=== PATIENT | female | born 1935 | race Caucasian/White ===

== ENCOUNTER 2016-08-20 12:12 | Emergency (ER) | payer MEDICARE ==
[2014-09-10 06:04] VITALS: BMI 22.0
[~2016-08-20 12:12] MED LIST: ALDACTONE25 MG PO; ALTACE2.5 MG PO; BAYER CHEWABLE81 MG PO; COREG 3.1253.125 MG PO; DUONEB 2.5-0.5 M3 ML UPD; IBUPROFEN400 MG PO; K-TAB10 MEQ PO; KEFLEX500 MG PO; LASIX40 MG PO; LASIX80 MG PO; LEVOTHROID50 MCG PO; LISINOPRIL2.5 MG PO; MIRALAX17 GM PO; MUCINEX600 MG PO; NAPROSYN500 MG PO; NITRO-BID60 GM TP; NITRO-DUR0.4 MG TRANSDERM; NORCO 10/325 TA1 TA1 PO; OMNICEF300 MG PO; PRAVACHOL20 MG PO; PRISTIQ50 MG PO; PROAIR HFA8.5 GM INH; PROTONIX40 MG PO; VALIUM5 MG PO
[2016-08-20 13:02] LABS: BASOPHILS 0.1 % (0-2); EOSINOPHILS 2.7 % (0-7); HEMATOCRIT 52.1 % (36.0-48.0); IMMATURE GRANULOCYTES 0.1 % (0-5); LYMPHOCYTES 15.1 % (15-50); MCHC 32.6 g/dL (31.0-37.0); MCV 101.2 fL (80.0-100.0); MEAN PLATELET VOLUME 10.9 fL (7.4-10.4); MONOCYTES 10.4 % (2-11); NEUTROPHILS 71.6 % (40-80); RBC 5.15 10x6/uL (4.00-5.40); WBC 7.4 10x3/uL (4.8-10.8)
[2016-08-20 13:03] LABS: PLATELET COUNT 171 10x3/uL (130-400)
[2016-08-20 13:29] LABS: ALBUMIN 3.9 g/dL (3.4-5.0); ANION GAP 10.4 mmol/L (8-16); BILIRUBIN - TOTAL 1.01 mg/dL (0.2-1.3); CALCIUM 9.3 mg/dL (8.5-10.1); CARBON DIOXIDE 30.7 mmol/L (21.0-32.0); POTASSIUM - SERUM 4.1 mmol/L (3.5-5.1); PROTEIN - SERUM 7.3 g/dL (6.4-8.2)
== END 2016-08-20 16:33 | disposition home or self-care (01) ==
LOC: D.ER 12:12
PROVIDERS: Emergency Medicine
DX: I50.9 Heart failure, unspecified (principal); M54.9 Dorsalgia, unspecified; J44.9 Chronic obstructive pulmonary disease, unspecified; F32.9 Major depressive disorder, single episode, unspecified; Z95.0 Presence of cardiac pacemaker

== ENCOUNTER 2016-09-19 21:41 | Emergency (ER) | payer MEDICARE ==
[2014-09-10 06:04] VITALS: BMI 22.0
[2016-09-19 22:55] LABS: BASOPHILS 0.6 % (0-2); EOSINOPHILS 3.8 % (0-7); HEMATOCRIT 47.7 % (36.0-48.0); HEMOGLOBIN 15.4 g/dL (12-16); IMMATURE GRANULOCYTES 0.2 % (0-5); LYMPHOCYTES 23.5 % (15-50); MCHC 32.3 g/dL (31.0-37.0); MCV 102.4 fL (80.0-100.0); MEAN PLATELET VOLUME 11.5 fL (7.4-10.4); MONOCYTES 16.7 % (2-11); NEUTROPHILS 55.2 % (40-80); PLATELET COUNT 186 10x3/uL (130-400); RBC 4.66 10x6/uL (4.00-5.40)
[2016-09-19 23:32] LABS: ALBUMIN 3.6 g/dL (3.4-5.0); ALKALINE PHOSPHATASE 150 U/L (46-116); BILIRUBIN - TOTAL 0.85 mg/dL (0.2-1.3); CALC OSMOLALITY 283 mosm/kg (275-300); CALCIUM 8.9 mg/dL (8.5-10.1); CARBON DIOXIDE 27.1 mmol/L (21.0-32.0); CHLORIDE - SERUM 102 mmol/L (98-107); CREATINE KINASE 466 UL (21-215); CREATININE - SERUM 1.3 mg/dL (0.6-1.3); GLUCOSE 106 mg/dL (74-106); MAGNESIUM - SERUM 1.6 mg/dL (1.8-2.4); POTASSIUM - SERUM 3.9 mmol/L (3.5-5.1); PRO BNP 4139 pg/mL (0-450); PROTEIN - SERUM 6.8 g/dL (6.4-8.2); SODIUM 139 mmol/L (136-145); TROPONIN-I 0.054 ng/mL (0.000-0.060); UREA NITROGEN 30 mg/dL (7-18); eGFR NON AFRICAN AMERICAN 41 mL/min (90-120)
[2016-09-19 23:35] LABS: CKMB 2.9 U/L (0.0-3.6)
[2016-09-19 23:43] LABS: ALT (SGPT) 24 U/L (10-68)
== END 2016-09-19 23:00 | disposition home or self-care (01) ==
LOC: D.ER 21:41
PROVIDERS: Emergency Medicine
DX: R07.9 Chest pain, unspecified (principal); J44.9 Chronic obstructive pulmonary disease, unspecified; I50.9 Heart failure, unspecified

== ENCOUNTER 2016-11-25 10:09 | Emergency (ER) | payer MEDICARE ==
[2014-09-10 06:04] VITALS: BMI 22.0
[2016-11-25 12:12] LABS: BASOPHILS 0.2 % (0-2); EOSINOPHILS 1.1 % (0-7); HEMATOCRIT 47.7 % (36.0-48.0); HEMOGLOBIN 15.9 g/dL (12-16); IMMATURE GRANULOCYTES 0.3 % (0-5); LYMPHOCYTES 11.7 % (15-50); MCH 33.4 pg (26.0-34.0); MCHC 33.3 g/dL (31.0-37.0); MCV 100.2 fL (80.0-100.0); MEAN PLATELET VOLUME 10.9 fL (7.4-10.4); NEUTROPHILS 73.7 % (40-80); PLATELET COUNT 190 10x3/uL (130-400); RBC 4.76 10x6/uL (4.00-5.40); RDW 14.2 % (11.5-14.5); WBC 10.1 10x3/uL (4.8-10.8)
[2016-11-25 12:19] LABS: APPEARANCE HAZY (CLEAR); BILIRUBIN NEGATIVE (NEGATIVE); COLOR YELLOW (YELLOW); GLUCOSE NEGATIVE (NEGATIVE); KETONE NEGATIVE (NEGATIVE); LEUKOCYTE ESTERASE 1+ (NEGATIVE); NITRITE POSITIVE (NEGATIVE); PROTEIN 1+ mg/dL (NEGATIVE); SPECIFIC GRAVITY 1.015 (1.005-1.020); UROBILINOGEN NORMAL (NORMAL)
[2016-11-25 12:20] LABS: BACTERIA MANY /hpf (NONE SEEN); EPITHELIAL CELLS 0-5 /hpf (0-5); RED CELLS - URINE 0-5 /hpf (0-5)
== END 2016-11-25 14:02 | disposition home or self-care (01) ==
LOC: D.ER 10:09
PROVIDERS: Nurse Practitioner Family
DX: N39.0 Urinary tract infection, site not specified (principal); M54.5 Low back pain; J44.9 Chronic obstructive pulmonary disease, unspecified; I50.9 Heart failure, unspecified; Z95.0 Presence of cardiac pacemaker

== ENCOUNTER 2016-12-02 01:33 | Emergency (ER) | payer MEDICARE ==
[2014-09-10 06:04] VITALS: BMI 22.0
[2016-12-02 02:55] LABS: APPEARANCE CLEAR (CLEAR); COLOR YELLOW (YELLOW)
[2016-12-02 02:56] LABS: BILIRUBIN NEGATIVE (NEGATIVE); GLUCOSE NEGATIVE (NEGATIVE); KETONE NEGATIVE (NEGATIVE); LEUKOCYTE ESTERASE NEGATIVE (NEGATIVE); NITRITE NEGATIVE (NEGATIVE); PROTEIN NEGATIVE (NEGATIVE); SPECIFIC GRAVITY 1.015 (1.005-1.020); UROBILINOGEN NORMAL (NORMAL)
== END 2016-12-02 03:45 | disposition home or self-care (01) ==
LOC: D.ER 01:33
PROVIDERS: Emergency Medicine
DX: M54.5 Low back pain (principal); M51.36 Other intervertebral disc degeneration, lumbar region; J44.9 Chronic obstructive pulmonary disease, unspecified; Z95.0 Presence of cardiac pacemaker

== ENCOUNTER 2016-12-03 12:29 | Emergency (ER) | payer MEDICARE ==
[2014-09-10 06:04] VITALS: BMI 22.0
== END 2016-12-03 17:42 | disposition home or self-care (01) ==
LOC: D.ER 12:29
DX: R07.81 Pleurodynia (principal); M54.5 Low back pain; J44.9 Chronic obstructive pulmonary disease, unspecified; Z95.0 Presence of cardiac pacemaker

== ENCOUNTER 2016-12-05 13:51 | Observation (INO) | payer MEDICARE ==
[~2016-12-05] VITALS: Ht 157.5 cm; Wt 54.4 kg
[2016-12-05 15:40] LABS: BASOPHILS 0.3 % (0-2); EOSINOPHILS 1.3 % (0-7); HEMATOCRIT 44.3 % (36.0-48.0); HEMOGLOBIN 14.7 g/dL (12-16); IMMATURE GRANULOCYTES 0.1 % (0-5); LYMPHOCYTES 15.2 % (15-50); MCH 33.6 pg (26.0-34.0); MCHC 33.2 g/dL (31.0-37.0); MCV 101.4 fL (80.0-100.0); MEAN PLATELET VOLUME 10.8 fL (7.4-10.4); MONOCYTES 9.6 % (2-11); NEUTROPHILS 73.5 % (40-80); PLATELET COUNT 192 10x3/uL (130-400); RBC 4.37 10x6/uL (4.00-5.40); RDW 14.1 % (11.5-14.5); WBC 6.9 10x3/uL (4.8-10.8)
[2016-12-05 15:59] LABS: INR 1.14 (0.85-1.17); PROTIME 14.5 SECONDS (11.6-15.0)
[2016-12-05 16:03] LABS: ALBUMIN 3.5 g/dL (3.4-5.0); ANION GAP 12.3 mmol/L (8-16); BILIRUBIN - TOTAL 0.77 mg/dL (0.2-1.3); CALCIUM 8.8 mg/dL (8.5-10.1); CARBON DIOXIDE 26.8 mmol/L (21.0-32.0); CREATININE - SERUM 1.1 mg/dL (0.6-1.3); POTASSIUM - SERUM 4.1 mmol/L (3.5-5.1); PROTEIN - SERUM 6.4 g/dL (6.4-8.2)
[2016-12-05 16:12] LABS: TROPONIN-I 0.038 ng/mL (0.000-0.060)
[2016-12-05 20:23] LABS: APPEARANCE CLEAR (CLEAR); BILIRUBIN NEGATIVE (NEGATIVE); COLOR YELLOW (YELLOW); GLUCOSE NEGATIVE (NEGATIVE); KETONE NEGATIVE (NEGATIVE); LEUKOCYTE ESTERASE NEGATIVE (NEGATIVE); NITRITE NEGATIVE (NEGATIVE); PROTEIN NEGATIVE (NEGATIVE); SPECIFIC GRAVITY 1.015 (1.005-1.020); UROBILINOGEN NORMAL (NORMAL)
--- NOTE | 2016-12-05 21:18 | NUR ---
ARRIVED TO FLOOR, VIA WHEELCHAIR ACCOMPANIED BY HOSPITAL STAFF. ORIENTED TO UNIT, CALL LIGHT IN REACH. WILL CONTINUE TO MONITOR.
--- NOTE | 2016-12-05 22:00 | NUR ---
DIVINE HARRIS PAGED FOR PAIN MEDICATION, AWAITING CALL BACK.
[2016-12-05] MEDS ORDERED: LEVOTHYROXINE50 MCG PO (22:03)
[2016-12-05] MEDS ORDERED: K-TAB10 MEQ PO (22:03)
[2016-12-06] MEDS ORDERED: PRAVASTATIN SOD10 MG PO (00:04)
[2016-12-06] MEDS ORDERED: FUROSEMIDE20 MG PO (00:04)
[2016-12-06] MEDS ORDERED: LISINOPRIL2.5 MG PO (00:04)
[2016-12-06] MEDS ORDERED: COREG 3.1253.125 MG PO (00:06)
[2016-12-06] MEDS ORDERED: GLYCOLAX527 GM PO (00:06)
[2016-12-06] MEDS ORDERED: CELEXA20 MG PO (00:07)
[2016-12-06] MEDS ORDERED: WELLBUTRIN SR150 MG PO (00:07)
[2016-12-06 00:15] VITALS: BP 130/82; BMI 22.0
--- NOTE | 2016-12-06 02:50 | NUR ---
CALL LIGHT IN REACH. WILL CONTINUE WITH PLAN OF CARE. WILL CONTINUE TO MONITOR.
--- NOTE | 2016-12-06 06:33 | NUR ---
NO CHANGES FROM PREVIOUS ASSESSMENT, CALL LIGHT IN REACH. PAIN MEDICATION REQUESTED FOR BACK PAIN
--- NOTE | 2016-12-06 08:11 | NUR ---
AM ROUNDS - PT IS AWAKE IN BED. IV TO LEFT HAND. BED AT LOWEST POSITION. CALL CASTELAN IN USE/REACH. SIDE RAILS UP X2. PT IS A LEFT ARM RESERVE (AVF). PT ON ROOM AIR. NO NEEDS AT THIS TIME. WILL CONTINUE TO MONITOR
--- NOTE | 2016-12-06 08:17 | NUR ---
AM ROUNDS - PT IS IN BED AND AWAKE. IV TO LEFT HAND, SL. PT C/O BACK PAIN. PT IS ON RA. BED AT LOWEST POSITION. CALL CASTELAN IN USE/REACH. SIDE RAILS UP X2. WILL CONTINUE OT MONITOR
[2016-12-06 10:28] VITALS: BP 140/85
[2016-12-06 10:37] VITALS: Ht 157.5 cm; Wt 54.4 kg
[2016-12-06 11:33] VITALS: BP 119/76
--- NOTE | 2016-12-06 16:35 | NUR ---
Patient Name: NIKOLAS PATEL Admission Status: ER Accout number: [id number] Admission Date: 12-05-2016 : 1935 Admission Diagnosis: Attending: ELIESER NIÑO Current LOS: 1 Anticipated DC Date: 12-06-2016 Planned Disposition: Home Primary Insurance: [employer] ADV Discharge Planning Comments: * Is the patient Alert and Oriented? Yes 0 * How many steps to enter\exit or inside your home? 2 0 * PCP DR. GAO 0 * Pharmacy [facility] 0 * Preadmission Environment Home with Family 0 * ADLs Independent 0 * Equipment Cane Nebulizer Oxygen Walker 0 * Other Equipment OXYGEN AT NIGHT ONLY [facility] - MEDICAL EQUIPMENT PROVIDER 0 * List name and contact numbers for known caregivers / representatives who currently or will assist patient after discharge: KAMLA PATEL, SON, 0 * Community resources currently utilized None 0 * Please name any agencies selected above. NONE 0 * Additional services required to return to the preadmission environment? No 0 * Can the patient safely return to the preadmission environment? Yes 0 * Has this patient been hospitalized within the prior 30 days at any hospital? Yes 0 CM MET WITH PT IN ROOM TO DISCUSS DISCHARGE PLANNING AND NEEDS. PT REPORTS LIVING AT HOME INDEPENDENTLY WITH HER ADULT SON. PT HAS ALL NEEDED MEDICAL EQUIOPMENT FROM [facility]. PT HAS NO OUTSIDE SERVICES ASSISTING IN THE HOME. CM DISCUSSED AVAILABILITY OF HOME HEALTH, REHAB SERVICES AND MEDICAL EQUIPMENT. PT DENIES DISCHARGE NEEDS, REPORTS HER SON WILL PICK HER UP FOR DISCHARGE HOME. Consultant Teacher: Priyank Armstrong
--- NOTE | 2016-12-06 18:03 | NUR ---
WRITTEN AND VERBAL D/C INSTRUCTIONS GIVEN TO PT AND FAMILY MEMBER. IV TO RIGHT HAND D/C. CATH TIP INTACT. APPLIED 2X2 DRESSING AND SECURTED WITH TAPE. PT TOLERATED WELL. PT LEFT FLOOR VIA WHEELCHAIR WITH MEAT PICKLER. WILL D/C
== END 2016-12-06 18:08 | disposition home or self-care (01) ==
LOC: D.ER 13:51 → D.M2 20:13 → OBSVTIME 20:13 → D.ER 20:13 → D.M2 20:13
PROVIDERS: Nurse Practitioner Family; ADMIT Internal Medicine Interventional Cardiology
DX: M51.36 Other intervertebral disc degeneration, lumbar region (principal); I42.9 Cardiomyopathy, unspecified; M41.9 Scoliosis, unspecified; I11.0 Hypertensive heart disease with heart failure; I50.9 Heart failure, unspecified; I25.10 Atherosclerotic heart disease of native coronary artery without angina pectoris; Z95.5 Presence of coronary angioplasty implant and graft; Z95.0 Presence of cardiac pacemaker; Z86.73 Personal history of transient ischemic attack (TIA), and cerebral infarction without residual deficits; J44.9 Chronic obstructive pulmonary disease, unspecified; G89.29 Other chronic pain; I34.0 Nonrheumatic mitral (valve) insufficiency